=== PATIENT | female | born 1965 | race Caucasian/White ===

== ENCOUNTER 2022-12-11 08:23 | Outpatient (CLI) | payer BC | END 2022-12-11 08:24 | disposition home or self-care (01) | LOC: CSHULT 08:23 | PROVIDERS: ATTEND Physician Assistant | DX: N63.15 Unspecified lump in the right breast, overlapping quadrants (principal) ==

== ENCOUNTER → 2022-12-14 | Day surgery (SDC) | payer BC | LOC: CSHULT 12:24 | PROVIDERS: ATTEND Physician Assistant | PROC: 0HB5XZX Excision of Chest Skin, External Approach, Diagnostic (ICD-10-PCS; principal; 2022-12-14) | DX: R92.8 Other abnormal and inconclusive findings on diagnostic imaging of breast (principal); N63.15 Unspecified lump in the right breast, overlapping quadrants; N62 Hypertrophy of breast | CPT/HCPCS: 19083; 88305; 88341; 88342 ==

== ENCOUNTER 2023-01-14 13:06 | Outpatient (CLI) | payer BC | END 2023-01-14 13:07 | disposition home or self-care (01) | LOC: CSHMAMMO 13:06 | PROVIDERS: ATTEND Internal Medicine Rheumatology | DX: M81.0 Age-related osteoporosis without current pathological fracture (principal) | CPT/HCPCS: 77080 ==

== ENCOUNTER 2023-01-17 07:10 | Day surgery (SDC) | payer BC ==
[2023-01-14 12:33] VITALS: BMI 30.7
[2023-01-17] MEDS ORDERED: PROPOFOL 20 ML ONE (09:38)
[2023-01-17] MEDS ORDERED: fentaNYL 50 mcg/mL 1 mL Vial ONE ×2 (09:38→10:18)
[2023-01-17] MEDS ORDERED: Midazolam HCl 2 mg/2 ml Vial ONE (09:38)
[2023-01-17] MEDS ORDERED: Lidocaine 2% PF 5 ML VIAL ONE (09:38)
[2023-01-17] MEDS ORDERED: CEFAZOLIN 2 GM VIAL ONE (09:41)
[2023-01-17] MEDS ORDERED: Sevoflurane 250 ML INH ANEST BOTTLE ONE ×2 (09:45→09:47)
[2023-01-17] MEDS ORDERED: EPINEPHrine 1 MG/ML VIAL ONE (09:47)
[2023-01-17] MEDS ORDERED: Bupivacaine PF 0.5% 30 ML VIAL ONE (09:47)
[2023-01-17] MEDS ORDERED: HYDROcodone/Acetaminophen 5/325 mg Tablet PO PRN (11:02)
[2023-01-17] MEDS ORDERED: Acetaminophen 325 MG TAB PO PRN (11:02)
== END 2023-01-17 11:40 | disposition home or self-care (01) ==
LOC: CSHSDC 07:10
PROVIDERS: ATTEND Surgery
PROC: 0HBT0ZZ Excision of Right Breast, Open Approach (ICD-10-PCS; principal; 2023-01-17)
DX: N60.91 Unspecified benign mammary dysplasia of right breast (principal); I10 Essential (primary) hypertension
CPT/HCPCS: 76098; 88307; 88341; 88342; J0171; J2001; J2250; J2704; J3010; S0020

== ENCOUNTER 2023-07-19 12:55 | Outpatient (CLI) | payer BC | END 2023-07-19 12:56 | disposition home or self-care (01) | LOC: CSHMAMMO 12:55 | PROVIDERS: ATTEND Surgery | DX: N60.91 Unspecified benign mammary dysplasia of right breast (principal) | CPT/HCPCS: G0279 ==